=== PATIENT | female | born 1990 | race Caucasian/White ===

== ENCOUNTER 2022-05-06 09:08 | Outpatient (CLI) | payer OTHER, SELFPAY | END 2022-05-06 09:09 | disposition home or self-care (01) | LOC: NFLDREF 09:09 | PROVIDERS: PCP Family Medicine; Visit Provider Obstetrics & Gynecology | DX: O20.9 Hemorrhage in early pregnancy, unspecified (principal) | CPT/HCPCS: 84702 ==

== ENCOUNTER 2022-05-09 08:44 | Outpatient (CLI) | payer OTHER, SELFPAY | END 2022-05-09 08:45 | disposition home or self-care (01) | PROVIDERS: Obstetrics & Gynecology; PCP Family Medicine; Visit Provider Obstetrics & Gynecology | DX: O20.9 Hemorrhage in early pregnancy, unspecified (principal) | CPT/HCPCS: 84702 ==

== ENCOUNTER 2022-05-11 14:54 | Outpatient (CLI) | payer OTHER, SELFPAY ==
[2022-05-11 17:31] LABS: HCG Quantitative* 433.17 mIU/mL
== END 2022-05-11 14:55 | disposition home or self-care (01) ==
PROVIDERS: PCP Family Medicine; Visit Provider Obstetrics & Gynecology
DX: O20.9 Hemorrhage in early pregnancy, unspecified (principal)
CPT/HCPCS: 84702

== ENCOUNTER 2022-05-16 08:40 | Outpatient (CLI) | payer OTHER, SELFPAY ==
[2022-05-16 09:21] LABS: Alanine Aminotransferase* 14 U/L (4-35); Aspartate Amino Transferase* 39 U/L (12-35); Creatinine* 0.7 mg/dL (0.5-1.5); Estimated Glomerular Filt Rate 117 ml/min
[2022-05-16 09:22] LABS: Blood Urea Nitrogen* 11 mg/dL (5-24)
== END 2022-05-16 08:41 | disposition home or self-care (01) ==
LOC: NFLDREF 08:42
PROVIDERS: PCP Family Medicine; Visit Provider Obstetrics & Gynecology
DX: O20.9 Hemorrhage in early pregnancy, unspecified (principal)
CPT/HCPCS: 82565; 84450; 84460; 84520; 84702

== ENCOUNTER 2022-05-16 08:49 | Outpatient (CLI) | payer OTHER, SELFPAY ==
--- NOTE | 2022-05-16 09:15 | CRLHL7_ITS ---
For Patients: As a result of the Century Cures Act, medical imaging exams and procedure reports are released immediately into your electronic medical record. You may view this report before your referring provider. If you have questions, please contact your health care provider. INDICATION: Rule out ectopic, low level beta hCG measurements which have not changed over the last 4 days. COMPARISON: None. TECHNIQUE: Real-time fallon-scale imaging of the pelvis was performed. FINDINGS: A small gestational sac is present within the endometrial canal with a mean sac diameter of 4.8 millimeters, corresponding with a 5 week 0 day gestation. No ectopic . A tiny pole is present measuring 2 millimeters. Corpus luteal cyst left ovary. Normal right ovary. Trace free fluid noted in the cul-de-sac. IMPRESSION: Tiny intrauterine gestational sac. Dictated by Bon Brooks MD @ 05/16/2022 10:20:24 AM (Electronically Signed)
== END 2022-05-16 08:50 | disposition home or self-care (01) ==
PROVIDERS: PCP Family Medicine; Visit Provider Obstetrics & Gynecology
DX: O20.9 Hemorrhage in early pregnancy, unspecified (principal)
CPT/HCPCS: 76817

== ENCOUNTER 2022-06-07 15:43 | Outpatient (CLI) | payer OTHER, SELFPAY | END 2022-06-07 15:44 | disposition home or self-care (01) | LOC: NFLDREF 06-10 01:52 | PROVIDERS: PCP Family Medicine; Referring Provider Family Medicine; Visit Provider Obstetrics & Gynecology | DX: O03.9 Complete or unspecified spontaneous abortion without complication (principal) | CPT/HCPCS: 84702 ==

== ENCOUNTER 2022-09-26 08:30 | Outpatient (CLI) | payer OTHER, SELFPAY | END 2022-09-26 08:31 | disposition home or self-care (01) | LOC: NFLDREF 09-28 05:57 | PROVIDERS: PCP Family Medicine; Referring Provider Family Medicine; Visit Provider Obstetrics & Gynecology | DX: O20.9 Hemorrhage in early pregnancy, unspecified (principal) | CPT/HCPCS: 84702 ==

== ENCOUNTER 2022-09-28 08:42 | Outpatient (CLI) | payer OTHER, SELFPAY | END 2022-09-28 08:43 | disposition home or self-care (01) | LOC: NFLDREF 12:31 | PROVIDERS: PCP Family Medicine; Referring Provider Family Medicine; Visit Provider Obstetrics & Gynecology | DX: O20.9 Hemorrhage in early pregnancy, unspecified (principal) | CPT/HCPCS: 84702 ==

== ENCOUNTER 2022-09-30 08:30 | Outpatient (CLI) | payer OTHER, SELFPAY | END 2022-09-30 08:31 | disposition home or self-care (01) | LOC: NFLDREF 12:04 | PROVIDERS: PCP Family Medicine; Referring Provider Family Medicine; Visit Provider Obstetrics & Gynecology | DX: O20.9 Hemorrhage in early pregnancy, unspecified (principal) | CPT/HCPCS: 84702 ==

== ENCOUNTER 2022-10-13 09:38 | Outpatient (CLI) | payer OTHER, SELFPAY ==
[2022-10-13 13:44] LABS: Chlamydia DNA Amplified* NOT DETECTED (No Detected); GC DNA Amplified* NOT DETECTED (No Detected)
== END 2022-10-13 09:39 | disposition home or self-care (01) ==
PROVIDERS: PCP Family Medicine; Visit Provider Physician Assistant
DX: Z34.91 Encounter for supervision of normal pregnancy, unspecified, first trimester (principal); Z3A.01 Less than 8 weeks gestation of pregnancy
CPT/HCPCS: 76817; 86592; 86703; 86762; 86787; 86803; 86850; 86900; 86901; 87086; 87340; 87491; 87591

== ENCOUNTER 2023-01-12 08:00 | Outpatient (CLI) | payer OTHER, SELFPAY ==
--- NOTE | 2023-01-12 08:15 | CRLHL7_ITS ---
For Patients: As a result of the Century Cures Act, medical imaging exams and procedure reports are released immediately into your electronic medical record. You may view this report before your referring provider. If you have questions, please contact your health care provider. OBSTETRICAL ULTRASOUND 01/12/2023 INDICATION: anatomy scan. TECHNIQUE: Transabdominal obstetrical ultrasound. COMPARISON: None available. FINDINGS: LMP: 08/25/2022. AMY by LMP: 06/01/2023. GA: 20 weeks 0 days. Position: Vertex. Cervix: Visualized, TA. Length of closed cervix: 3.7 cm. Placenta Position: Posterior, TA. Placenta tip to internal os: 6.8 cm. Umbilical Cord: Three-vessel cord. Placental Insertion: Central. Amniotic Fluid: 4.3 cm, SDP (>2-<8 cm) Observed Structures: Cerebellum: 2.2 cm, 22 weeks 0 days. Cisterna Magna: 3.2 mm. Nuchal Fold: 4.5mm. Lateral Ventricle: 4.6 mm. CSP. Midline Falx. Choroid Plexus. Spine. Abdomen. Abdominal Cord Insertion. Urinary Bladder. Kidneys, Diaphragm. Nose/Lips. Orbital view. Profile. Extremities. 4-chamber heart. LVOT. RVOT. BDP: 4.7 cm, 20 weeks 1 day, 58th percentile. HC: 17.9 cm, 20 weeks 3 days, 60th percentile. AC: 16.3 cm, 21 weeks, 13 days, 85th percentile. FL: 3.4 cm, 20 weeks 5 days, 67th percentile. FL/AC: 20.85%. HC/AC Ratio: 1.10. Heart Rate: 149 Age by this US: 21 weeks 0 days. AMY by this US: 05/25/2023. EFW: 377.89 grams, 14 oz. Percentile by AMY: 92%. IMPRESSION: Single live intrauterine gestation. No gross anomalies visualized. Nannette Delgado M.D. Diagnostic/Breast Radiologist [email or web address] JESUS/jose / DW/Dictated by: Nannette Delgado MD @ 01/14/2023 1:20:00 PM (Electronically Signed)
== END 2023-01-12 08:01 | disposition home or self-care (01) ==
PROVIDERS: PCP Family Medicine; Visit Provider Obstetrics & Gynecology
DX: Z34.92 Encounter for supervision of normal pregnancy, unspecified, second trimester (principal); Z3A.21 21 weeks gestation of pregnancy
CPT/HCPCS: 76805

== ENCOUNTER 2023-03-02 13:20 | Outpatient (CLI) | payer OTHER, SELFPAY | END 2023-03-02 13:21 | disposition home or self-care (01) | LOC: NFLDREF 03-05 09:44 | PROVIDERS: PCP Family Medicine; Referring Provider Family Medicine; Visit Provider Obstetrics & Gynecology | DX: Z34.91 Encounter for supervision of normal pregnancy, unspecified, first trimester (principal) | CPT/HCPCS: 86592 ==

== ENCOUNTER 2023-05-04 13:25 | Outpatient (CLI) | payer OTHER, SELFPAY | END 2023-05-04 13:26 | disposition home or self-care (01) | LOC: NFLDREF 05-08 05:36 | PROVIDERS: PCP Family Medicine; Referring Provider Family Medicine; Visit Provider Obstetrics & Gynecology | DX: Z34.83 Encounter for supervision of other normal pregnancy, third trimester (principal) | CPT/HCPCS: 87081; 87653 ==

== ENCOUNTER 2023-05-23 05:20 | Inpatient (IN) | payer OTHER, SELFPAY ==
[2023-05-23] VITALS (33 sets, daily range): BP systolic 108–123; BP diastolic 66–81; PULSE 54–80; RESP 14–16; TEMP 35.8–36.4; O2SAT 95–99; BMI 32.8
[2023-05-23] MEDS: LACTATED RINGERS 1000 ML 1,000 ML 500 ML IV (05:59)
[2023-05-23 06:21] LABS: Hemoglobin* 12.8 gm/dL (12.0-16.0)
--- NOTE | 2023-05-23 07:18 | PM.PROC ---
Procedure Note Time Seen by Provider: 08:38 Date Seen: 05/23/23 Date of procedure: 05/23/23 Will [facility] bill your pro fee for this procedure?: Yes Procedure: Preoperative diagnosis: 32-year-old 3 para 2001 at 38 and 5/7 weeks admitted for a scheduled repeat low transverse section. Postoperative diagnosis: Same Procedure: Repeat low-transverse section. Anesthesia: Spinal Surgeon: Moraima Vogt MD Tag Press Operator: N/A Quantitative blood loss: 356 mL IVF: 1500 mL UOP: 50 mL Drain(s): Jain to gravity. Specimen: None Findings: A live male infant was delivered from the bj breech position at 749 a.m. Apgars were 9 at 1 min and 9 at 5 min, respectively. There was a Moses on the baby's left buttock that occurred when the uterus was entered. Infant weight: 4040 g, 8 lb 15 oz. Nuchal cord(s): No. The placenta was delivered spontaneously and complete at 0751 a.m.. Amniotic fluid: Clear. Normal uterus, fallopian tubes and ovaries were noted. Other findings: Minimal adhesions, very thin lower uterine segment would recommend delivery at 38 weeks 0 days if she has another baby. Procedure: Vickey was taken to the OR where spinal anesthetic was found be adequate. A Jain catheter was placed. The patient was then placed in the dorsal supine position with a leftward tilt. She was then prepped and draped in a normal sterile manner. A Pfannenstiel skin incision was made and carried through sharply to the underlying layer of fascia. Fascia was incised in the midline and this incision carried laterally with Goetz scissors. The superior aspect of fascial incision was grasped with Unruly clamps, tented up, and the rectus muscles dissected off with a combination of blunt and sharp dissection. The inferior aspect of the fascial incision was not dissected off with a combination of blunt and sharp dissection. The rectus muscles were in the midline. The peritoneum was entered bluntly. This opening was extended bluntly. An Dyllan-O self-retaining retractor was placed. A bladder flap was created with the Metzenbaum scissors. Uterus was incised in a low transverse manner in the midline. This incision carried laterally with blunt pressure on the inferior and superior aspects of the uterine incision. The amniotic sac was ruptured. The infant's breech and body were delivered atraumatically. The infant was shown to the patient and her support person. The umbilical was clamped and cut immediately/after a 30-60 second delay. The infant was then handed to waiting pediatric and nursing staff. The placenta was delivered spontaneously. The uterus was cleared of clots and debris. The uterine incision was re-approximated with the uterus in vivo. The 1st layer using 0-Vicryl in a running, locked manner. The 2nd layer using 0-Monocryl in a running, vertical, imbricating layer. Additional sutures needed for hemostasis: Yes, 1 fear of 8 suture using 2-0 chromic. . Excellent hemostasis was confirmed. The Dyllan retractor was removed. The peritoneum was reapproximated with 3 0 Vicryl in a running manner. The rectus muscles were then closely inspected to verify hemostasis. Hemostasis was obtained with bipolar cautery. The fascia was then reapproximated using 0-Maxon loop in a running manner. The subcutaneous tissue was then irrigated with saline and hemostasis obtained with bipolar cautery. The subcutaneous tissue was reapproximated using 3-0 plain gut in a running manner. The skin was reapproximated using 4-0 Monocryl in a running subcuticular manner. Exophin skin adhesive and a Mepiplex dressing were applied. The patient tolerated this procedure well. Sponge, lap and instrument counts were correct x2 active to the procedure. Patient was taken to the recovery area in stable condition. The patient received 900 mg clindamycin plus 435 mg of gentamicin IV prior to skin incision.
[2023-05-23] MEDS: CLINDAMYCIN 900 MG/50 ML-D5W IVPB (07:31)
[2023-05-23] MEDS: GENTAMICIN 435 MG in 0.9 % SODIUM CHLORIDE 100 ml 100 ML 110.88 MG IVPB (07:41)
--- NOTE | 2023-05-23 07:42 | W.ANESCHARGE ---
Anesthesia Charges Start Date/Time Anesthesia Start Date: 05/23/23 Anesthesia Start Time: 07:20 Stop Date/Time Anesthesia Stop Date: 05/23/23
[2023-05-23] MEDS: KETOROLAC 30 MG/ML inj IVP ×3 (08:30→21:09)
--- NOTE | 2023-05-23 08:37 | W.PM.H&PU ---
History & Physical Update History & Physical Update H&P Reviewed and patient assessed: No changes noted
--- NOTE | 2023-05-23 08:40 | W.ANESCHARGE ---
Anesthesia Charges Start Date/Time Anesthesia Start Date: 05/23/23 Anesthesia Start Time: 07:20 Stop Date/Time Anesthesia Stop Date: 05/23/23 Anesthesia Stop Time: 08:46
--- NOTE | 2023-05-23 09:28 | W.ANESCHARGE ---
Anesthesia Charges Start Date/Time Anesthesia Start Date: 05/23/23 Anesthesia Start Time: 07:20 Stop Date/Time Anesthesia Stop Date: 05/23/23 Anesthesia Stop Time: 08:46
--- NOTE | 2023-05-23 09:28 | W.PM.NB ---
Nerve Block Nerve Block Time Seen by Provider: 08:36 Date Seen: 05/23/23 Type of block requested by surgeon for post-operative analgesia: TAP Side: bilateral Time out performed: Yes Verification of patient name: Yes Verification of date of : Yes Site marking: site marked Name of person performing procedure: Jourdan Continuous monitoring Was continuous monitoring of O2 sat, B/P, metal wire coating operator, recorded every 15 minutes?: Yes Procedure Checklist: sterile prep, needles and gloves Ultrasound guided. Images saved: Yes Medications given in 5ml increments after negative aspiration: Marcaine %: 0.25 mL: 30 Needle gauge: 20 and Exparel mL: 10 Patient tolerated procedure well: Yes Additional comments: Needle noted between internal oblique and transversus abdominus. Local spread visualized Block Charges Block Charge (with Pro Fee): TAP Bilateral Use of Ultrasound Machine for Block: Yes- US Guidance/pain block
[2023-05-23] MEDS: ACETAMINOPHEN 500 MG TABLET 1000 MG PO (10:09)
[2023-05-24] VITALS (11 sets, daily range): BP systolic 114–129; BP diastolic 75–88; PULSE 64–75; RESP 16; TEMP 36.3–36.8; O2SAT 96–97
[2023-05-24] MEDS: KETOROLAC 30 MG/ML inj IVP ×3 (03:19→15:44)
[2023-05-24 07:00] LABS: Hemoglobin* 12.6 gm/dL (12.0-16.0)
[2023-05-24] MEDS: ACETAMINOPHEN 500 MG TABLET 1000 MG PO ×2 (07:21→13:46)
[2023-05-24] MEDS: DOCUSATE SODIUM 100 MG CAPSULE PO (09:10)
--- NOTE | 2023-05-24 10:16 | P.DS_ITS ---
Documented by User: Clarice Perla 05/24/23 14:19 DS: Providers Provider Time Seen by Provider: 08:00 Date Seen: 05/24/23 Date of admission: 05/23/23 05:20 Primary care physician: Zak Patton MD Admitting Clinician: Moraima Vogt MD Attending Physician on discharge: Moraima Vogt MD Date of Discharge: 05/24/23 DS: Diagnosis Discharge Diagnosis (1) care and examination of lactating mother: Status: Acute (2) care following delivery: Status: Acute Exam Const: Vital Signs, click to edit/add: Vital Signs - 24 hr 05/23/23 10:56 05/23/23 11:08 05/23/23 11:11 Temperature 96.8 F L Pulse Rate [Pulse Oximeter] 54 L 58 L Respiratory Rate 14 16 16 Blood Pressure [Le ft Arm] 115/77 121/80 Pulse Oximetry 98 97 Oxygen Delivery Me thod 05/23/23 11:30 05/23/23 11:47 05/23/23 12:00 Temperature Pulse Rate [Pulse Oximeter] 60 62 Respiratory Rate 16 16 16 Blood Pressure [Le ft Arm] 112/66 116/75 Pulse Oximetry 97 97 Oxygen Delivery Me thod 05/23/23 13:00 05/23/23 14:00 05/23/23 15:00 Temperature Pulse Rate [Pulse Oximeter] Respiratory Rate 16 16 16 Blood Pressure [Le ft Arm] Pulse Oximetry Oxygen Delivery Me thod 05/23/23 16:00 05/23/23 16:18 05/23/23 17:00 Temperature 97.2 F L Pulse Rate [Pulse Oximeter] 63 Respiratory Rate 16 16 16 Blood Pressure [Le ft Arm] 108/69 Pulse Oximetry 96 Oxygen Delivery Me thod Room Air 05/23/23 18:00 05/23/23 19:00 05/23/23 20:00 Temperature Pulse Rate [Pulse Oximeter] Respiratory Rate 16 16 16 Blood Pressure [Le ft Arm] Pulse Oximetry Oxygen Delivery Me thod 05/23/23 21:00 05/23/23 21:00 05/23/23 22:00 Temperature 97.6 F Pulse Rate [Pulse Oximeter] 63 Respiratory Rate 16 16 16 Blood Pressure [Le ft Arm] 121/78 Pulse Oximetry 99 Oxygen Delivery Me thod Room Air 05/23/23 23:00 05/24/23 00:00 05/24/23 01:00 Temperature Pulse Rate [Pulse Oximeter] Respiratory Rate 16 16 16 Blood Pressure [Le ft Arm] Pulse Oximetry Oxygen Delivery Me thod 05/24/23 01:09 05/24/23 02:00 05/24/23 03:00 Temperature 98.1 F Pulse Rate [Pulse Oximeter] 64 Respiratory Rate 16 16 16 Blood Pressure [Le ft Arm] 121/77 Pulse Oximetry 96 Oxygen Delivery Me thod Room Air 05/24/23 04:00 05/24/23 05:00 05/24/23 05:50 Temperature 98.2 F Pulse Rate [Pulse Oximeter] 70 Respiratory Rate 16 16 16 Blood Pressure [Le ft Arm] 116/77 Pulse Oximetry 97 Oxygen Delivery Me thod Room Air 05/24/23 06:00 05/24/23 09:57 Temperature 97.4 F L Pulse Rate [Pulse Oximeter] 73 Respiratory Rate 16 16 Blood Pressure [Le ft Arm] 114/75 Pulse Oximetry Oxygen Delivery Me thod Common normals: no apparent distress Resp: Common normals: normal respiratory effort Cardio: Common normals: S1 normal heart sound and S2 normal heart sound Heart sounds: S1 normal and S2 normal Extremity: Common normals: normal to inspection Psych: Common normals: mental status grossly normal OB - DS: Summary Hospital Course Hospital Course: The patient is a 32-year-old 3 para 2002 at 38 and 5/7 weeks admitted for a scheduled repeat low transverse section on 05/23/23. She had an uncomplicated repeat section delivery. She delivered a viable male i nfant. She is independently. Urinary output is adequate and she is voiding without difficulty.? Has a good appetite, is tolerating a general diet, is passing flatus, and has not had a bowel movement.? Has scant amount of rubra lochia. Incision is intact no redness or drainage. fundus is firm. She is ambulating well.? the patient has done well and expressed the desire to discharge home early. Discussed risks with early discharge. She will plan to stay until this evening. She planning a PP IUD for control. Peripartum Data Infant delivery method: Repeat Section Procedures: Procedures Operation Date: 05/23/23 07:15 Actual Procedure Side Surgeon p Repeat Section Moraima Vogt MD Gender: Male Time Spent with Patient Time attestation: Total time spent providing and/or coordinating discharge services: Discharge Plan Discharge Disposition: Home, Self-Care Date of Admission: 05/23/23 05:20 Attending Provider on Discharge: Zoraida Levine Primary Care Provider: Zak Patton Condition: Stable Anticipated Discharge Date/Time: 05/24/23 19:00 Discharge Medications: New docusate sodium 100 mg Capsule 100 mg PO BID Qty: 90 0RF Rx Instructions: Take 1-2 tablets daily as needed for constipation. ibuprofen 600 mg Tablet 600 mg PO Q6H PRN (Reason: Pain) Qty: 90 0RF oxycodone 5 mg Tablet 5 - 10 mg PO Q4H PRN (Reason: Pain) Qty: 10 0RF Continued DHA 200 mg capsule 200 mg PO DAILY calcium carbonate [Tums] 200 mg calcium (500 mg) tablet,chewable 200 mg PO QDAY PRN Discontinued famotidine 20 mg tablet 20 mg PO QDAY magnesium oxide 400 mg (241.3 mg magnesium) tablet 400 mg PO QDAY Discharge Orders: Discharge Order (Routine); Ordered 05/24/23 Ordered By: Zoraida Levine Patient Education: OB /Breast Feeding Additional Instructions: Discharge instructions were reviewed with the patient including signs and symptoms of infection and home going medications? ?? Activity restrictions:? Lifting Restrictions: 20 pounds for 6 weeks? No high-impact or core exercises for 6 weeks.?? No not submerge incision under water X 2 weeks?? Nothing vaginally for 6 weeks: no tampons or intercourse? Do not drive while taking narcotic pain medication(s)? Off Work or School for 8 weeks? ?? Symptoms to report to doctor:? -Bleeding that saturates more than one pad per hour? -Passing clots larger than the size of a golf ball? -Pain not relieved by prescribed medication? -Fever above 100.4 degrees Fahrenheit? -A foul vaginal odor? -Difficulty in emotions, mood and functions? -Thoughts of hurting yourself and/or ? -Painful, reddened area in your breast? -Any drainage, redness or tenderness in your IV/epidural site? -Severe headache that doesn't improve after taking medications? -Changes in vision, including temporary loss of vision, blurred v ision, and/or light sensitivity? -Upper abdominal pain (usually under ribs on the right side)? -Decrease in urination or painful, frequent urinating? -Chest pain? -Shortness of breath? -Tenderness or pain with redness and/swelling in the calf(s) of your leg? Follow up visits:?? 1. 1 week visit:? incision check.? 2. 2-week visit: discuss infant feeding/care concerns, review control options and screen for anxiety/depression.? 3. 6-week visit for an annual exam.? ?? consultation services are available to all mothers and babies for the first year after delivery.? To make an appointment, please call [phone].? Follow Up Appointments: [facility] [Provider Group] Forms: [facility] Info Instructions Documented by User: Zoraida Levine CNM 05/24/23 15:01 DS: Diagnosis Discharge Diagnosis (1) care and examination of lactating mother: Status: Acute (2) care following delivery: Status: Acute OB - DS: Summary Hospital Course Hospital Course: The patient is a 32-year-old 3 para 2002 at 38 and 5/7 weeks admitted for a scheduled repeat low transverse section on 05/23/23. She had an uncomplicated repeat section delivery. She delivered a viable male . She is independently. Urinary output is adequate and she is voiding without difficulty.? Has a good appetite, is tolerating a general diet, is passing flatus, and has not had a bowel movement.? Has scant amount of rubra lochia.? She is ambulating well.? the patient has done well and expressed the desire to discharge home early. Discussed risks with early discharge. She will plan to stay until this evening. She planning a PP IUD for control. Peripartum Data complications: none Discharge Plan: Home Status at Discharge Functional status at discharge: independent ambulation Overall status at discharge: patient is progressing back to baseline Discharge Plan Discharge Disposition: Home, Self-Care Date of Admission: 05/23/23 05:20 Attending Provider on Discharge: Zoraida Levine Primary Care Provider: Zak Patton Condition: Stable Anticipated Discharge Date/Time: 05/24/23 19:00 Discharge Medications: New docusate sodium 100 mg Capsule 100 mg PO BID Qty: 90 0RF Rx Instructions: Take 1-2 tablets daily as needed for constipation. ibuprofen 600 mg Tablet 600 mg PO Q6H PRN (Reason: Pain) Qty: 90 0RF oxycodone 5 mg Tablet 5 - 10 mg PO Q4H PRN (Reason: Pain) Qty: 10 0RF Continued DHA 200 mg capsule 200 mg PO DAILY calcium carbonate [Tums] 200 mg calcium (500 mg) tablet,chewable 200 mg PO QDAY PRN Discontinued famotidine 20 mg tablet 20 mg PO QDAY magnesium oxide 400 mg (241.3 mg magnesium) tablet 400 mg PO QDAY Discharge Orders: Discharge Order (Routine); Ordered 05/24/23 Ordered By: Zoraida Levine Patient Education: OB /Breast Feeding Additional Instructions: Discharge instructions were reviewed with the patient including signs and symptoms of infection and home going medications? ?? Activity restrictions:? Lifting Restrictions: 20 pounds for 6 weeks? No high-impact or core exercises for 6 weeks.?? No not submerge incision under water X 2 weeks?? Nothing vaginally for 6 weeks: no tampons or intercourse? Do not drive while taking narcotic pain medication(s)? Off Work or School for 8 weeks? ?? Symptoms to report to doctor:? -Bleeding that saturates more than one pad per hour? -Passing clots larger than the size of a golf ball? -Pain not relieved by prescribed medication? -Fever above 100.4 degrees Fahrenheit? -A foul vaginal odor? -Difficulty in emotions, mood and functions? -Thoughts of hurting yourself and/or ? -Painful, reddened area in your breast? -Any drainage, redness or tenderness in your IV/epidural site? -Severe headache that doesn't improve after taking medications? -Changes in vision, including temporary loss of vision, blurred vision, and/or light sensitivity? -Upper abdominal pain (usually under ribs on the right side)? -Decrease in urination or painful, frequent urinating? -Chest pain? -Shortness of breath? -Tenderness or pain with redness and/swelling in the calf(s) of your leg? Follow up visits:?? 1. 1 week visit:? incision check.? 2. 2-week visit: discuss feeding/care concerns, review control options and screen for anxiety/depression.? 3. 6-week visit for an annual exam.? ?? consultation services are available to all mothers and babies for the first year after delivery.? To make an appointment, please call [phone].? Follow Up Appointments: [facility] [Provider Group] Forms: [facility] Info Instructions
[2023-05-25 00:25] LABS: Rapid Plasma Reagin (RPR) Non Reactive (Non Reactive)
== END 2023-05-24 17:20 | disposition home or self-care (01) | DRG 788 ==
PROVIDERS: Admitting Provider Obstetrics & Gynecology; PCP Family Medicine; Visit Provider Obstetrics & Gynecology
PROC: 10D00Z1 Extraction of Products of Conception, Low, Open Approach (ICD-10-PCS; CPT 59514; principal; 2023-05-23 07:15)
DX: O34.211 Maternal care for low transverse scar from previous cesarean delivery (principal); G89.18 Other acute postprocedural pain; Z3A.38 38 weeks gestation of pregnancy; Z37.0 Single live birth
CPT/HCPCS: 01961; 36415; 64488; 76942; 85018; 86592; 86850; 86900; 86901; A9270; C9290; J0665; J0736; J1580; J1885; J2274; J2405; J2590; J7120

== ENCOUNTER 2024-05-22 08:54 | Outpatient (CLI) | payer OTHER, SELFPAY | END 2024-05-22 08:55 | disposition home or self-care (01) | LOC: NFLDREF 08:55 | PROVIDERS: PCP Family Medicine; Visit Provider Registered Nurse | DX: Z34.81 Encounter for supervision of other normal pregnancy, first trimester (principal) | CPT/HCPCS: 84702 ==

== ENCOUNTER 2024-05-30 12:09 | Outpatient (CLI) | payer OTHER, SELFPAY ==
--- NOTE | 2024-05-30 12:15 | CRLHL7_ITS ---
For Patients: As a result of the Century Cures Act, medical imaging exams and procedure reports are released immediately into your electronic medical record. You may view this report before your referring provider. If you have questions, please contact your health care provider. OBSTETRICAL ULTRASOUND, 05/30/2024 INDICATION: Dating and viability. LMP: 04/09/2024 AMY by LMP: 01/14/2025. Gestational age: 7w 2d Previous US: No TECHNIQUE: Transvaginal pelvic ultrasound. FINDINGS: CRL: 13 cm, 7 weeks 3 days. AMY: 01/13/2025 heart rate: 147 bpm Gestational sac: 2.1 cm appears within normal limits Yolk sac: 3.0 mm appears within normal limits Right ovary: Within normal limits; 3.0 x 3.2 x 2.3 cm, CL Left ovary: Within normal limits; 3.0 x 1.4 x 1.7 cm, CL IMPRESSION: 1. Single living intrauterine with sonographic gestational age 7 weeks 3 days and sonographic due date 01/18/2025. 2. Subchorionic hemorrhage measures 9 x 12 x 10 mm. Bon Brooks M.D. Diagnostic Radiologist [email or web address] SP/Dictated by: Bon Brooks MD @ 05/30/2024 1:03:00 PM (Electronically Signed)
== END 2024-05-30 12:10 | disposition home or self-care (01) ==
LOC: US 12:09
PROVIDERS: PCP Family Medicine; Visit Provider Registered Nurse
DX: Z34.91 Encounter for supervision of normal pregnancy, unspecified, first trimester (principal); Z3A.01 Less than 8 weeks gestation of pregnancy
CPT/HCPCS: 76817; 83021; 86592; 86703; 86704; 86706; 86762; 86787; 86803; 86850; 86900; 86901; 87086; 87340; 87491; 87591

== ENCOUNTER 2024-05-30 14:08 | Outpatient (CLI) | payer OTHER, SELFPAY ==
[2024-05-30 23:29] LABS: Chlamydia DNA Amplified* NOT DETECTED (No Detected); GC DNA Amplified* NOT DETECTED (No Detected)
== END 2024-05-30 14:09 | disposition home or self-care (01) ==
PROVIDERS: PCP Family Medicine; Visit Provider Registered Nurse
DX: Z34.91 Encounter for supervision of normal pregnancy, unspecified, first trimester (principal); Z3A.01 Less than 8 weeks gestation of pregnancy
CPT/HCPCS: 83020; 83021; 85660; 86592; 86703; 86704; 86706; 86762; 86787; 86803; 86850; 86900; 86901; 87086; 87340; 87491; 87591

== ENCOUNTER 2024-08-28 09:00 | Outpatient (CLI) | payer OTHER, SELFPAY | END 2024-08-28 09:01 | disposition home or self-care (01) | LOC: US 09:00 | PROVIDERS: PCP Family Medicine; Visit Provider Obstetrics & Gynecology | DX: O09.522 Supervision of elderly multigravida, second trimester (principal); Z3A.20 20 weeks gestation of pregnancy | CPT/HCPCS: 76811; 76817 ==

== ENCOUNTER 2024-09-25 13:39 | Outpatient (CLI) | payer OTHER, SELFPAY | END 2024-09-25 13:40 | disposition home or self-care (01) | LOC: US 13:40 | PROVIDERS: PCP Family Medicine; Visit Provider Obstetrics & Gynecology | DX: O09.522 Supervision of elderly multigravida, second trimester (principal); O44.02 Complete placenta previa NOS or without hemorrhage, second trimester; Z3A.24 24 weeks gestation of pregnancy | CPT/HCPCS: 76816; 76817 ==

== ENCOUNTER 2024-10-24 08:50 | Outpatient (CLI) | payer OTHER, SELFPAY | END 2024-10-24 08:51 | disposition home or self-care (01) | LOC: NFLDREF 10-28 16:06 | PROVIDERS: PCP Family Medicine; Referring Provider Family Medicine; Visit Provider Obstetrics & Gynecology | DX: Z34.83 Encounter for supervision of other normal pregnancy, third trimester (principal) | CPT/HCPCS: 86592 ==

== ENCOUNTER 2024-10-30 07:35 | Outpatient (CLI) | payer OTHER, SELFPAY | END 2024-10-30 07:36 | disposition home or self-care (01) | LOC: US 07:35 | PROVIDERS: PCP Family Medicine; Visit Provider Obstetrics & Gynecology | DX: O34.593 Maternal care for other abnormalities of gravid uterus, third trimester (principal); Z98.891 History of uterine scar from previous surgery; Z3A.29 29 weeks gestation of pregnancy | CPT/HCPCS: 76816; 76817 ==

== ENCOUNTER 2024-11-27 13:48 | Outpatient (CLI) | payer OTHER, SELFPAY ==
--- NOTE | 2024-11-27 14:00 | CRLHL7_ITS ---
For Patients: As a result of the Century Cures Act, medical imaging exams and procedure reports are released immediately into your electronic medical record. You may view this report before your referring provider. If you have questions, please contact your health care provider. OB ULTRASOUND AMY by LMP: 01/14/2025. GA: 33 w, 1 d. Single. Comparison: 10/30/2024, 10/22/2024, 09/25/2024. INDICATION: Lower uterine segment is attenuated with no measurable myometrium. Revaluate lower uterine segment and growth. TECHNIQUE: Real time grayscale imaging of the fetus was performed. Transabdominal and transvaginal. Transvaginal imaging obtained to better evaluate the cervix. CERVIX: Visualized. TV Measurement: 4.1 cm. POSITIONING: Vertex. AMNIOTIC FLUID: 5.9 cm. SDP (N: greater than 2 x 1 cm) PLACENTA: Technique: Transabdominal. PLACENTA POSITION: Anterior. DOPPLER: heart rate: 131 bpm. BIOMETRY: BPD: 7.9 cm. 31 w, 5 d, 9.8 percent. HC: 30.4 cm. 33 w, 5 d, 28.5 percent. AC: 30.3 cm. 34 w, 2 d, 81.9 percent. FL: 6.2 cm. 32 w, 2 d, 16.9 percent. FL/AC ratio: 20.51 percent. HC/AC ratio: 1.00. EFW: 2188 g. Weight: 4 lbs, 13 oz. age by this US: 33 w, 0 d. AMY by this US: 01/15/2025. Percentile by AMY: 49.3 percent. IMPRESSION: 1. Sonographic gestational age 33 weeks 0 days and sonographic due date 01/15/2025. Good correlation with dates. Normal interval growth. 2. Estimated weight 49th percentile. Abdominal circumference 82nd percentile. 3. Transvaginal images of the cervix also performed. Cervix is closed and measures 4.1 cm. Vertex position. No previa. Bon Brooks M.D. Diagnostic Radiologist [email or web address] PAMELA/nikole agustin/Dictated by: Bon Brooks MD @ 11/27/2024 4:00:00 PM (Electronically Signed)
== END 2024-11-27 13:49 | disposition home or self-care (01) ==
LOC: US 13:48
PROVIDERS: PCP Family Medicine; Visit Provider Obstetrics & Gynecology
DX: O34.593 Maternal care for other abnormalities of gravid uterus, third trimester (principal); Z3A.33 33 weeks gestation of pregnancy
CPT/HCPCS: 76816; 76817

== ENCOUNTER 2024-12-10 13:20 | Outpatient (CLI) | payer OTHER, SELFPAY ==
[2024-12-11 12:26] LABS: Strep B DNA Probe Negative (Negative)
[2024-12-11 12:42] LABS: Strep B Susceptibility Needed? No
== END 2024-12-10 13:21 | disposition home or self-care (01) ==
LOC: NFLDREF 13:32
PROVIDERS: PCP Family Medicine; Visit Provider Obstetrics & Gynecology
DX: O09.523 Supervision of elderly multigravida, third trimester (principal); Z3A.35 35 weeks gestation of pregnancy
CPT/HCPCS: 87081; 87653

== ENCOUNTER 2024-12-24 05:42 | Inpatient (IN) | payer OTHER, SELFPAY ==
[2024-12-24] VITALS (19 sets, daily range): BP systolic 105–136; BP diastolic 68–87; PULSE 69–89; RESP 14–18; TEMP 36.3–37; O2SAT 97–100; BMI 33.7
[2024-12-24] MEDS: LACTATED RINGERS 1000 ML 1,000 ML 1200 ML IV (06:33)
[2024-12-24] MEDS: CLINDAMYCIN 900 MG/50 ML-D5W 900 MG/50 ML PIGGYBACK 100 MG IVPB (06:40)
[2024-12-24 06:54] LABS: Hematocrit* 38.8 % (33.0-51.0); Hemoglobin* 13.1 gm/dL (12.0-16.0); Immature Granulocytes Abs Auto 0.06 K/uL (0.00-0.30); Immature Granulocytes Pct Auto 0.7 %; Lymphocytes Absolute Auto 1.84 K/uL (0.90-2.90); Mean Corpuscular HGB Conc 34 gm/dL (32-36); Mean Corpuscular Hemoglobin 30 pg (26-34); Mean Corpuscular Volume 89 fL (80-100); RDW Coefficient of Variation % 13.7 % (11.5-15.5); Red Blood Count* 4.37 m/uL (4.00-5.20); White Blood Count* 8.01 K/uL (4.50-11.00)
[2024-12-24 06:55] LABS: Slide Review Reflex No
[2024-12-24] MEDS: LACTATED RINGERS 1000 ML 1,000 ML 100 ML IV (07:03)
--- NOTE | 2024-12-24 07:14 | P.LDBA_ITS ---
Subjective History of Present Illness Narrative: Vickey is being admitted to Labor and Delivery for scheduled repeat with bilateral salpingectomy. She is a 34 year old at 37 weeks gestation. is complicated by history of x3, uterine window noted at #3, suspected uterine window in this , RESOLVED anterior placenta previa (no sign of PAS on [facility] US), undesired fertility, AMA. Her full history and physical was dictated by myself on 12/10/24. Please see this for details. Patient is feeling well today with no acute concerns. We reviewed the surgical plan for repeat with bilateral salpingectomy in detail. Discussed cascade of interventions that could be required if hemorrhage is encountered or if placenta is noted to be adherent. If this were to occur, discussed potential for peripartum hysterectomy were conversion to general anesthesia be required. Patient expressed understanding. She affirmed her desire to be permanently sterilized. Preop hemoglobin 13.1. Given screen drawn, cross-matched for 2 units this morning. Specific Issues/Plans G 5 P 3013 : Justo Children: Nidhi Guerrero, Kun. Baby: Thornton H&P: [facility] 12/10 # Placenta previa, resolved as of 09/25. # History of occult uterine dehiscence (uterine window). Thin GUIDO on imaging this . * [facility] 09/25/24: Previa resolved, no sign of PAS. Bulging lower uterine segment and very thin. Repeat US in 4 weeks for EFW and reassess GUIDO. * Wants B salpingectomy in addition to . * Repeat : Requested 12/31/24 at 38w0d. Will change to [birth year] (the patient's birthday) if [facility] recommends 37 weeks. * Repeat US The lower uterine segment is quite attenuated with no measurable myometrium; the uterine contour is preserved with no bulging of the lower uterine segment noted....will call if she notes any signs/symptoms of abdominal pain, cramping, contractions, bleeding or ROM. * [facility] recommends repeat transabdominal and transvaginal US in 4 weeks to re- evaluate maternal uterus, growth, anatomy and amniotic fluid, currently scheduled with either [facility] * As long as findings are stable, delivery is recommended between 37-38 weeks gestation. #Undesired fertility - consented for bilateral salpingectomy on 12/10/24 (private insurance) # Suboptimal spine views F/U note from [facility] Repeat US in 4 weeks to reassess placenta/spine assessment (09/25/24): all sub optimal viewed anatomy normal. #Advanced maternal age Genetic testing: Declines Level 2 ultrasound at 20 weeks #History of x3. First due to breech, 2nd was a repeat, 3rd due to breech. #Anxiety related to history of miscarriage. * Feeling better since having a couple office visits and normal 1st trimester ultrasound. * May plan to have additional office visits as needed. * PHQ/MATILDE: 0 at 32 weeks #Macrosomia. Second baby was 9 lb 5 oz. Consider growth ultrasound in 3rd trimester Imagin. Level 2 US 08/28: Normal visualized anatomy. Spine views suboptimally seen. Placenta is anterior and previa, no overt sign of PAS. 3 vessel cord. MVP 5.9cm. Cx 43mm. 2. 09/25/2024 [facility] F/U: Spine visualized and noted to be normal. Previa resolved. No evidence of PAS. GUIDO is very thin and bulging. EFW 67%, 723g, 1#10oz. SDP: 5.4cm. Reassess EFW and GUIDO in 4 weeks. Timing of delivery to be recommended later in the after GUIDO is reassessed. 3. 10/30/2024: 29 weeks, 1 day. breech, anterior placenta without previa, MVP 6.6, EFW 74.1%, AC 89.3%. The lower uterine segment is quite attenuated with no measurable myometrium; the uterine contour is preserved with no bulging of the lower uterine segment noted. 4. 11/27/2024: Vertex presentation, SDP: 5.9cm, cervix:4.1cm. BPD: 7.9 cm. 31 w, 5 d, 9.8 percent.HC: 30.4 cm. 33 w, 5 d, 28.5 percent.AC: 30.3 cm. 34 w, 2 d, 81.9 percent.FL: 6.2 cm. 32 w, 2 d, 16.9 percent.EFW: 2188 g. Weight: 4 lbs, 13 oz.Percentile by AMY: 49.3 percent.IMPRESSION: Sonographic gestational age 33 weeks 0 days and sonographic due date 01/15/2025. Good correlation with dates. Normal interval growth. Estimated weight 49th percentile. Abdominal circumference 82nd percentile. Transvaginal images of the cervix also performed. Cervix is closed and measures 4.1 cm. Vertex position. No previa. ADDENDUM: The lower uterine segment is unchanged compared to the prior study with no measurable myometrium. No significant change. Vaccinations: Flu: Recommended. Declines. Covid: Recommended. Declines. Tdap: 11/06/24 RSV: 11/27/24 GBS negative 32 week mental health: 11/20/24 Last pap: January 2021 normal, negative HPV. History of abnormal Pap in 2014. See problem list. OB - Problem Based A/P Additional Plan (1) Unwanted fertility: Status: Acute (2) Abnormality of uterus during : Problem details: Thin lower uterine segment Status: Acute (3) History of 3 sections: Status: Acute (4) AMA (advanced maternal age) multigravida 35+: Status: Acute (5) History of macrosomia in in prior , currently : Status: Acute Plan Vickey is a 34yo at 37w0d GA admitted for repeat with bilateral salpingectomy. is complicated by history of x3, uterine window noted at #3, suspected uterine window in this , RESOLVED anterior placenta previa (no sign of PAS on [facility] US), undesired fertility, AMA. Admit for repeat C/S and bilateral salpingectomy x4. Hgb 13.1, T/S drawn. Crossmatching for 2 u pRBCs. Plan gentamicin and clindamycin intraoperatively due to cephalosporin allergy. OB Exam Physical Exam Vital signs: Temp Pulse BP 98.6 F 87 127/79 12/24/24 05:57 12/24/24 05:57 12/24/24 05:57 Narrative: General: Alert and oriented, no acute distress Psych: Appropriate mood and affect Abdomen: Gravid. EFW by US on 11/27 was 2188g at 49%ile, AC 82%. heart rate: Reactive. Baseline 130bpm, moderate variability, several qualifying 15x15 accelerations noted. One questionable variable deceleration (disrupted tracing) that is non recurrent. [place]: Irritability, no contractions
[2024-12-24] MEDS: GENTAMICIN 450 MG in 0.9 % SODIUM CHLORIDE 100 ml 100 ML 111.25 MG IVPB (07:23)
--- NOTE | 2024-12-24 09:13 | PM.OBPRCCS ---
Procedure Time Seen by Provider: : Date of procedure: 12/24/24 Pre-op diagnosis: History of C/S x3, undesired fertility, history of uterine window, suspected uterine window, resolved placenta previa, AMA Post-op diagnosis: same Procedure Done: Global Will [facility] bill your pro fee for this procedure?: Yes Blood Loss Measurement Type: QBL (799) Bakri Used: No IV fluids (mL): 1,800 Urine Output (mL): 450 Urine Output Comment: Clear, yellow Surgeon: Jovanny Quintanilla MD Auto Radio Mechanic: Jessy Balderrama MD Anesthesia Type: Spinal Findings: Adhesions of the rectus abdominis muscles and fascia Significant adhesion of the vesicouterine reflection, bladder adherent to lower uterine segment and anterior abdominal wall Lower uterine segment window Unremarkable bilateral fallopian tubes and ovaries Prominet vascularity of the bilateral mesosalpinx Procedure Name: Repeat delivery Bilateral salpingectomy Procedure Description: Patient was taken to the operating room with IV running. She received gentamicin and clindamycin in preoperative prophylaxis due to cephalosporin allergy. Spinal anesthesia was administered. Jain catheter was inserted. She was prepped and draped in the usual sterile fashion. Anesthesia was tested and found to be adequate. A low-transverse skin incision was made with a scalpel and carried through to the underlying layer of fascia with the scalpel. The subcutaneous fat was dissected off the underlying fascia with Bovie and blunt dissection. The fascia was nicked in the midline with a scalpel, where adhesions between the rectus abdominis muscle and fascia were noted. Care was made to extended laterally with scissors. The rectus muscles were in the midline. Peritoneum was identified and entered bluntly. Digital sweep confirmed adherence of the bladder to the anterior abdominal wall and overlying lower uterine segment. Peritoneal entry was widened superiorly first with Bovie, where bladder reflection was then sharply taken down. Traction was applied laterally to stretch this opening. The bladder was noted to be advanced overlying the lower uterine segment, where the vesicouterine reflection was identified more superior than typical but could be grasped and transected with Metzenbaum scissors to create a bladder flap. The lower uterine segment was inspected, where uterine window was noted across the entirety of the lower uterine segment. The bladder was dropped inferiorly even more, until a small margin of intact and normal lower uterine serosa was noted. head was readily apparent through window, where Allis forceps were utilized to grasp and elevate at site of planned hysterotomy to avoid injury to fetus. Scalpel was utilized to make an amniotomy, where the hysterotomy was widened bluntly. The 's head was grasped through the hysterotomy and elevated to the hysterotomy. The remainder of the body delivered without incident with the help of fundal pressure. Loose nuchal cord x1 was noted. Cord was clamped and cut after 30 seconds. Infant was handed off to attending nurses. The placenta failed to deliver with gentle traction on the cord. Manual removal of the placenta was performed, removed intact with no apparent adherent tissue. The uterus was exteriorized and cleaned of all clots and debris with the dry lap pad. Hysterotomy was inspected, ring forceps applied to corners. The inferior margin of the hysterotomy was noted to be very thin and attenuated, secondary to uterine window. A small extension was noted just right of midline where further delineation of the bladder flap was required to ensure safety of the bladder itself. Request to backfill the bladder made. While supplies were being obtained, the hysterotomy closure was started first on the right in a running, locked fashion with 0 vicryl. The inferior hysterotomy tissue was noted to be very thin, readily tore with even gentle traction. The right corner of the hysterotomy was lateral to medial for about 3cm, then paused. The same was performed on the left with similar inferior tissue friability noted. Jain catheter was clamped and bladder backfilled with 100cc of sterile formula. This provided excellent demarcation of the bladder margin, noted to be clear laterally where the hysterotomy closure was started bilaterally. In the midline, there was very thin uterine tissue noted with no appreciable myometrium explaining its propensity to tear with even gentle traction to reapproximate the hysterotomy. We proceeded to carefully further develop the bladder flap to safely defect the bladder inferiorly to access adequate tissue inferiorly in order to close the hysterotomy. This was completed largely with sharp dissection, scant electrocautery utilized to address bleeding. A small extension of the right inferior uterine tissue was noted, repaired in a separate running/locking fashion. This recreated a more robust inferior lower uterine segment tissue, which was then closed to the superior hysterotomy margin with our existing 0 vicryl suture and tied. Attention was turned back to the right margin of the hysterotomy, the inferior margin of the hysterotomy was closed in a horizontal imbricating fashion to provide adequate tissue strength to reapproximate it to the superior hysterotomy. This closure continued until the left sided hysterotomy closure was met. Adequate tissue approximation and excellent hemostasis was noted. A lap sponge was temporarily packed to apply pressure the hysterotomy closure site. The bilateral fallopian tubes and ovaries were inspected and found to be unremarkable. The mesosalpinx was noted to have robust venous plexus, but a clear plane in the mesosalpinx could be identified aside from one prominent vein at the distal ampullar segment of the tubes bilaterally. The right fallopian tube was identified and elevated with [place], where the tube was sequentially ligated and transected from the mesosalpinx with Ligasure working lateral to medial starting at the fimbriated end until we approached the known mesosalpinx vein. The same was then completed at the uterine cornua, working medial to lateral with serial ligation/transection to remove the fallopian tube with ligasure. The prominent mesosalpinx vein was isolated, then doubly clamped and cut. Tube was removed from the field for surgical pathology. A 2-0 Vicryl free tie was used to secure the tubal vessel while clamp was flashed. A second stick tie of 2-0 vicryl was applied to the distal vascular pedicle. Excellent hemostasis was noted. Salpingectomy was similarly completed on the left as described above. Both specimens sent for pathology. The hysterotomy was reexamined and found to be hemostatic. The uterus was reintroduced to the abdominal cavity. The salpingectomy site was examined bilaterally and was noted to be hemostatic. The hysterotomy was examined, where oozing was noted at the left inferior margin of the hysterotomy. A 0 vicryl remnant was utilized to apply a horizontal imbricating figure of eight stitch. Extended monitoring for bleeding at hysterotomy was completed, where excellent hemostasis was noted. Bladder flap was inspected and noted to be hemostatic. No bladder injury was identified nor suspected. [place] was applied across hysterotomy. The rectus muscles were clamped, elevated and examined. Electrocautery was utilized sparingly to achieve hemostasis. The fascia was reapproximated with looped 0 PDS in a running fashion. Subcutaneous fat was irrigated and Bovie used on oozing vessels. The subcutaneous fat was reapproximated with 2 0 vicryl suture in an interrupted fashion. The skin was closed with a subcuticular stitch of 3-0 monocryl. Surgical glue was applied above this. Patient tolerated procedure well was taken to recovery area in stable condition. Surgical debrief was completed. details: - Liveborn female fetus - weight: 3160g - APGARs were 8 and 8 at 1 and 5 minutes respectively Complications: None, though surgery was technically very difficult due to lysis of adhesions and uterine window Pathology: specimen obtained, sent to pathology Surgery Debrief Performed: Yes Condition: stable Disposition: floor [place] total score - 1 minute: 8 total score - 5 minute: 8
--- NOTE | 2024-12-24 09:39 | P.ANES_ITS ---
Anesthesia Charges Start Date/Time Anesthesia Start Date: 12/24/24 Anesthesia Start Time: 07:15 Stop Date/Time Anesthesia Stop Date: 12/24/24 Anesthesia Stop Time: 09:43 Coding CPT Codes CPT Codes: ANESTH CS DELIVERY - 04869 ([id number]) P2 - PATIENT W/MILD SYST DISEASE, QK - PUMPING STATION SUPERVISOR 2-4 CNCRNT ANES PROC, QX - PRINCIPAL MECHANICAL ENGINEER SVC W/ MD MED DIRECTION
--- NOTE | 2024-12-24 09:39 | W.ANESCHARGE ---
Anesthesia Charges Start Date/Time Anesthesia Start Date: 12/24/24 Anesthesia Start Time: 07:15 Stop Date/Time Anesthesia Stop Date: 12/24/24 Anesthesia Stop Time: 09:43 Coding CPT Codes CPT Codes: ANESTH CS DELIVERY - 22138 ([id number]) P2 - PATIENT W/MILD SYST DISEASE, QK - BOARD MACHINE SET UP OPERATOR 2-4 CNCRNT ANES PROC, QX - DOCTOR OF NURSE ANESTHESIA SVC W/ MD MED DIRECTION
--- NOTE | 2024-12-24 09:41 | W.PM.NB ---
Nerve Block Nerve Block Time Seen by Provider: : Date Seen: 12/24/24 Type of block requested by surgeon for post-operative analgesia: TAP Side: bilateral Time out performed: Yes Verification of patient name: Yes Verification of date of : Yes Site marking: site marked Name of person performing procedure: manuela Assistants, if any: MARTÍN [place] Continuous monitoring Was continuous monitoring of O2 sat, B/P, alarm security or surveillance monitor, recorded every 15 minutes?: Yes Procedure Checklist: sterile prep, needles and gloves Ultrasound guided. Images saved: Yes Medications given in 5ml increments after negative aspiration: Marcaine %: 0.25 mL: 30 and Exparel mL: 10 Patient tolerated procedure well: Yes Block Charges Block Charge (with Pro Fee): TAP Bilateral Use of Ultrasound Machine for Block: Yes- US Guidance/pain block
[2024-12-24] MEDS: ACETAMINOPHEN 500 MG TABLET 1000 MG PO ×2 (10:26→19:29)
--- NOTE | 2024-12-24 12:21 | P.ANES_ITS ---
Anesthesia Charges Start Date/Time Anesthesia Start Date: 12/24/24 Anesthesia Start Time: 07:15 Stop Date/Time Anesthesia Stop Date: 12/24/24 Anesthesia Stop Time: 09:43 Coding CPT Codes CPT Codes: ANESTH CS DELIVERY - 48576 ([id number]) QK - ELECTRONIC COMMERCE SPECIALIST 2-4 CNCRNT ANES PROC, QX - BIN OPERATOR SVC W/ MD MED DIRECTION, P2 - PATIENT W/MILD SYST DISEASE
--- NOTE | 2024-12-24 12:21 | W.ANESCHARGE ---
Anesthesia Charges Start Date/Time Anesthesia Start Date: 12/24/24 Anesthesia Start Time: 07:15 Stop Date/Time Anesthesia Stop Date: 12/24/24 Anesthesia Stop Time: 09:43 Coding CPT Codes CPT Codes: ANESTH CS DELIVERY - 32980 ([id number]) QK - SCULPTURE INSTRUCTOR 2-4 CNCRNT ANES PROC, QX - STRATEGIC PLANNING SPECIALIST SVC W/ MD MED DIRECTION, P2 - PATIENT W/MILD SYST DISEASE
[2024-12-25] MEDS: ACETAMINOPHEN 500 MG TABLET 1000 MG PO ×4 (02:08→19:52)
[2024-12-25 03:26] VITALS: BP 145/82; PULSE 76; RESP 16; TEMP 36.9; O2SAT 99
[2024-12-25 03:40] VITALS: BP 113/72
[2024-12-25 06:35] LABS: Hemoglobin* 11.8 gm/dL (12.0-16.0)
[2024-12-25] MEDS: DOCUSATE SODIUM 100 MG CAPSULE PO (07:33)
[2024-12-25 07:45] VITALS: BP 108/71; PULSE 74; RESP 16; TEMP 36.6; O2SAT 97
--- NOTE | 2024-12-25 08:04 | PM.OBPNVD1 ---
OB - PN:Subj Subjective Date Seen: 12/25/24 Narrative: Vickey is a 34 y.o. who was admitted to L & D for repeat C/S with tubal ligation .? She had an uncomplicated repeat .? ? The patient feels well.? The pain is well controlled with current medications.? She has no new complaints.? She is breast feeding and reports things are going well.? the patient has done well.? Vitals have been stable.? She has remained afebrile.? Has a good appetite, is tolerating a general diet.? She is voiding without difficulty.? She is passing gas and has not had a bowel movement.? She is ambulating and denies any dizziness.? Has Small amount of rubra lochia.? OB - PN: Obj Exam Physical Exam: Vital signs: Temp Pulse Resp BP Pulse Ox O2 Del Method 98.5 F 76 16 113/72 99 Room Air 12/25/24 03:26 12/25/24 03:26 12/25/24 03:26 12/25/24 03:40 12/25/24 03:26 12/25/24 03:26 Narrative: GENERAL APPEARANCE:? normal affect, alert, no distress MOOD:? appropriate CHEST:? clear to auscultation HEART:? regular rate and rhythm ABDOMEN:? soft, non-tender the uterine fundus is firm At Umbilicus, Midline and is appropriate for the stage of recovery. EXTREMITIES:? normal and edema Incision: dressing clean dry and intact, due to be removed this morning OB - PN: Obj Data Labs Labs: Laboratory Results - last 24 hr 12/25/24 06:21 Hgb 11.8 L OB - PN: A/P Delivery Assessment and Plan (1) care following delivery: Status: Inactive (2) Lactating mother: Status: Acute (3) Unwanted fertility: Status: Acute (4) Abnormality of uterus during : Problem details: Thin lower uterine segment Status: Acute (5) History of 3 sections: Status: Acute (6) AMA (advanced maternal age) multigravida 35+: Status: Acute (7) care following delivery: Problem details: repeat Status: Acute Plan day: 1 Plan: routine care Comments: Assessment/Plan?G 5 P 4 status post uncomplicated repeat with tubal ligation.? ?? 1.? Continue route PP cares? 2.? .? May see if desired? 3.? Anticipate discharge home tomorrow ? ?
[2024-12-25 12:26] VITALS: BP 126/81; PULSE 80; RESP 16; TEMP 36.7; O2SAT 97
[2024-12-25 16:22] VITALS: BP 112/72; PULSE 72; RESP 20; TEMP 36.6; O2SAT 97
[2024-12-25] MEDS: IBUPROFEN 600 MG TABLET PO (22:16)
[2024-12-25 22:21] VITALS: BP 111/75; PULSE 72; RESP 18; TEMP 36.7; O2SAT 97
[2024-12-26] MEDS: ACETAMINOPHEN 500 MG TABLET 1000 MG PO ×2 (03:44→09:29)
[2024-12-26] MEDS: IBUPROFEN 600 MG TABLET PO ×2 (05:28→11:34)
[2024-12-26 05:33] VITALS: BP 115/77; PULSE 70; RESP 16; TEMP 36.4; O2SAT 95
[2024-12-26 07:55] VITALS: BP 119/79; PULSE 74; RESP 16; TEMP 36.7; O2SAT 99
[2024-12-26] MEDS: DOCUSATE SODIUM 100 MG CAPSULE PO (08:04)
--- NOTE | 2024-12-26 09:10 | PM.OBDSVD1 ---
DS: Providers Provider Date Seen: 12/26/24 Date of admission: 12/24/24 05:42 Primary care physician: Zak Patton MD Admitting Clinician: Annalee Quintanilla MD Attending Physician on discharge: Vinita Young APRN, CNM DS: Diagnosis Discharge Diagnosis (1) care and examination immediately after delivery: Status: Acute (2) Lactating mother: Status: Acute (3) Placenta accreta affecting delivery: Status: Acute Problem details: rC/S with large uterine window, adherent bladder reflection. Path confirmed focal occult PAS. Pt notified on 12/25. Exam Narrative: Exam Narrative: GENERAL APPEARANCE:? normal affect, alert, no distress MOOD:? appropriate CHEST:? clear to auscultation HEART:? regular rate and rhythm ABDOMEN:? soft, non-tender the uterine fundus is At Umbilicus, Midline and is appropriate for the stage of recovery. EXTREMITIES:? normal and no edema INCISION: Healing well, no surrounding erythema, abnormal induration or discharge Const: Vital Signs, click to edit/add: Vital Signs - 24 hr 12/25/24 12:26 12/25/24 16:22 12/25/24 22:21 Temperature 98.1 F 97.9 F 98.0 F Pulse Rate [Pulse Oximeter] 80 72 72 Respiratory Rate 16 20 18 Blood Pressure [Le ft Arm] 126/81 112/72 111/75 Pulse Oximetry 97 97 97 Oxygen Delivery Me thod Room Air Room Air Room Air 12/26/24 05:33 12/26/24 07:55 Temperature 97.6 F 98.1 F Pulse Rate [Pulse Oximeter] 70 74 Respiratory Rate 16 16 Blood Pressure [Le ft Arm] 115/77 119/79 Pulse Oximetry 95 99 Oxygen Delivery Me thod Room Air Room Air Documenting provider has reviewed patient's vital signs: yes OB - DS: Summary Hospital Course Hospital Course: iVckey is a 34 y.o. G 5 P 4 who was admitted to [facility] for repeat c/s ?She had a c/s that was complicated by focal accreta, uterine window, and adhesions. The patient feels well. ?The pain is well controlled with current medications. ?She has no new complaints. ?She is breast feeding and reports things are going well. the patient has done well.? Vitals have been stable.? She has remained afebrile.? Has a good appetite, is tolerating a general diet. ?She is voiding without difficulty.? She is passing gas and has not had a bowel movement.? She is ambulating and denies any dizziness.? Has small amount of rubra lochia. She had a bilateral salpingectomy for prevention. Problems: denies Discharge home with baby.? Follow up in 2 weeks and 6 weeks.? , may see if needed? Hgb 11.8. ?? For pain control of perineum, breast and pelvic pain, take 600 mg Ibuprofen every 6 hours as needed by mouth or 1000 mg acetaminophen (Tylenol) every 6 hours by mouth as needed. You can alternate these so you are taking something every 3 hours as needed. A heating pad can also be used for your abdomen or breasts. You may also take docusate sodium up to twice daily to soften your stools and help to prevent constipation. You may wean off of it when your stools return to normal.? Peripartum Data delivery method: Repeat Section Procedures: Procedures Operation Date: 12/24/24 07:15 Actual Procedure Side Surgeon p Repeat Section, Bilateral Salpingectomy and Lysis of Adhesions Not Applicable Annalee Quintanilla MD Procedures: tubal ligation/salpingectomy Gender: Female Infant Discharge Plan: Home Status at Discharge Functional status at discharge: independent ambulation Overall status at discharge: patient is progressing back to baseline Time Spent with Patient Time attestation: Total time spent providing and/or coordinating discharge services: Time spent: Less than 30 minutes Discharge Plan Discharge Disposition: Home, Self-Care Date of Admission: 12/24/24 05:42 Attending Provider on Discharge: Vinita Young Primary Care Provider: Zak Patton Condition: Stable Anticipated Discharge Date/Time: 12/26/24 12:00 Discharge Medications: New acetaminophen 500 mg Tablet 1,000 mg PO Q6H PRN (Reason: Pain) Qty: 0 0RF docusate sodium 100 mg Capsule 100 mg PO DAILY Qty: 90 0RF ibuprofen 600 mg Tablet 600 mg PO Q6H PRN (Reason: Pain) Qty: 60 0RF oxycodone 5 mg Tablet 5 - 10 mg PO Q4H PRN (Reason: Pain) Qty: 15 0RF Continued DHA 200 mg capsule 200 mg PO DAILY magnesium 200 mg tablet 400 mg PO QDAY omeprazole 20 mg capsule,delayed release(DR/EC) 20 mg PO QDAY Discharge Orders: Discharge Order (Routine); Ordered 12/26/24 Ordered By: Vinita Young Patient Education: OB Over the Counter Medication Information, OB /Breast Feeding Additional Instructions: Discharge instructions were reviewed with the patient including signs and symptoms of infection and home going medications Lifting Restrictions: 20 pounds for 6 weeks No not submerge incision under water X 2 weeks? Nothing vaginally for 6 weeks: no tampons or intercourse Off Work or School for 6 weeks 2-week visit: incision check, discuss infant feeding concerns, review control options and screen for anxiety/depression. 6-week visit for an annual exam. consultation services are available to all mothers and babies for the first year after delivery.? To make an appointment, please call [phone]. Activity Level: Activity as Tolerated and No strenuous activity Discharge Diet: Regular Follow Up Appointments: [facility] [Provider Group] Forms: MyHealth Info Instructions
== END 2024-12-26 12:30 | disposition home or self-care (01) | DRG 785 ==
PROVIDERS: Obstetrics & Gynecology; Admitting Provider Obstetrics & Gynecology; PCP Family Medicine; Visit Provider Obstetrics & Gynecology
PROC: 10D00Z1 Extraction of Products of Conception, Low, Open Approach (ICD-10-PCS; CPT 59514; principal; 2024-12-24 07:15)
DX: O34.211 Maternal care for low transverse scar from previous cesarean delivery (principal); G89.18 Other acute postprocedural pain; O99.892 Other specified diseases and conditions complicating childbirth; N73.6 Female pelvic peritoneal adhesions (postinfective); O43.213 Placenta accreta, third trimester; Z3A.37 37 weeks gestation of pregnancy; Z30.2 Encounter for sterilization; Z37.0 Single live birth
CPT/HCPCS: 01961; 36415; 64488; 76942; 85018; 85025; 86592; 86850; 86900; 86901; 86922; 88302; 88307; A4314; A9270; J0665; J0666; J0736; J1100; J1580; J1885; J2371; J2405; J2590; J2704; J3010; J3490; J7120

== ENCOUNTER 2025-02-04 11:42 | Outpatient (CLI) | payer OTHER, SELFPAY | END 2025-02-04 11:43 | disposition home or self-care (01) | LOC: NFLDREF 11:43 | PROVIDERS: PCP Family Medicine; Visit Provider Registered Nurse | DX: N39.3 Stress incontinence (female) (male) (principal) | CPT/HCPCS: 87086 ==